=== PATIENT | female | born 1960 | race Caucasian/White ===

== ENCOUNTER 2017-11-16 13:35 | Emergency (ER) | payer MEDICAID ==
[~2017-11-16] VITALS: Ht 149.9 cm; Wt 95.3 kg
[2017-11-16 13:43] VITALS: BP_SYST 136
[2017-11-16] MEDS ORDERED: NACL 0.9% 1,000 ML IV ONE (14:29)
[2017-11-16 14:59] LABS: BASOPHILS # (AUTO) 0.2 K/uL (0.0-0.2); BASOPHILS % (AUTO) 1.7 % (0.0-2.0); EOSINOPHILS # (AUTO) 0.1 K/uL (0.0-0.4); EOSINOPHILS % (AUTO) 0.5 % (0.0-4.0); HEMATOCRIT 46.9 % (36-48); HEMOGLOBIN 15.2 g/dL (12.0-16.0); LYMPHOCYTES # (AUTO) 0.6 K/uL (1.0-5.5); LYMPHOCYTES % (AUTO) 4.3 % (20.5-51.5); MEAN CORPUSCULAR HEMOGLOBIN 28 pg (27-31); MEAN CORPUSCULAR HGB CONC 32 % (32-36); MEAN CORPUSCULAR VOLUME 85 fL (79.0-98.0); MONOCYTES # (AUTO) 0.2 K/uL (0.0-1.0); MONOCYTES % (AUTO) 1.3 % (1.7-9.3); NEUTROPHILS # (AUTO) 11.7 K/uL (1.8-7.7); NEUTROPHILS % (AUTO) 92.2 % (40.0-70.0); PLATELET COUNT (AUTO) 336 K/uL (130-430); RED CELL DISTRIBUTION WIDTH 13.3 % (9.0-15.0); WHITE BLOOD COUNT (AUTO) 12.8 K/uL (4.8-10.8)
[2017-11-16 15:04] LABS: CALCIUM 8.8 mg/dL (8.4-11.0); CREATININE 0.78 mg/dL (0.55-1.30); POTASSIUM 4.5 mmol/L (3.5-5.1)
[2017-11-16 15:08] LABS: ALBUMIN 3.7 g/dL (3.4-4.8); TOTAL BILIRUBIN 0.6 mg/dL (0.0-1.0)
[2017-11-16 16:51] LABS: BILIRUBIN,URINE NEGATIVE (NEGATIVE); BLOOD, URINE 1+ (NEGATIVE); CLARITY/URINE CLEAR (CLEAR); COLOR,URINE YELLOW (YELLOW); GLUCOSE,URINE NEGATIVE (NEGATIVE); KETONES,URINE NEGATIVE (NEGATIVE); LEUKOCYTE ESTERASE ,URINE NEGATIVE (NEGATIVE); NITRITE, URINE NEGATIVE (NEGATIVE); PROTEIN URINE NEGATIVE (NEGATIVE); UROBILINOGEN,URINE 0.2 (0.2-1.0)
[2017-11-16 16:56] LABS: BACTERIA,URINE FEW /HPF (None Seen); RBC,URINE 0-3 /HPF (0-3); WBC,URINE 0-3 /HPF (0-3)
[2017-11-16] MEDS ORDERED: ONDANSETRON HCL 4 MG/2 ML VIAL IVP ONE (17:00)
[2017-11-16] MEDS ORDERED: fentaNYL CITRATE/PF 100 MCG/2 ML AMP IVP ONE (17:00)
[2017-11-16 18:38] VITALS: BP_SYST 126
== END 2017-11-16 18:38 | disposition home or self-care (01) ==
LOC: SED 13:35
DX: K29.70 Gastritis, unspecified, without bleeding (principal); I10 Essential (primary) hypertension
CPT/HCPCS: 36415; 74176; 80053; 81000; 83690; 85025; 96361; 96374; 96375; 99285; J2405; J3010; J7030

== ENCOUNTER 2018-08-26 16:37 | Emergency (ER) | payer MEDICAID ==
[~2018-08-26] VITALS: Ht 149.9 cm; Wt 97.5 kg
[2018-08-26 17:00] VITALS: BP_SYST 141
--- NOTE | 2018-08-26 17:07 | NUR ---
Patient triaged and placed in waiting room. VSS and patient appears in no acute distress at this time. Accompanied by son, awaiting available bed, and MD notified of need for MSE.
--- NOTE | 2018-08-26 17:14 | NUR ---
Patient to ER hallway 2 to [facility] for evaluation. Side rails up. Report given to LYLA Call.
--- NOTE | 2018-08-26 17:15 | NUR ---
LOKI Diaz at bedside examining patient.
[2018-08-26] MEDS ORDERED: ALBUTEROL SULFATE 0.083% 2.5 MG/3 ML VIAL.NEB INH ONE ×3 (17:30→19:00)
[2018-08-26] MEDS ORDERED: methylPREDNISolone SOD SUCC/PF 62.5 MG/ML VIAL IM ONE (17:30)
--- NOTE | 2018-08-26 17:30 | NUR ---
Patient moved to bed 8. LYLA Call made aware.
[2018-08-26] MEDS: BUDESONIDE 0.5 MG/2 ML AMPUL.NEB INH ONE ×2 (17:38→18:02)
--- NOTE | 2018-08-26 17:40 | NUR ---
RT at bedside for breathing tx
[2018-08-26 17:43] LABS: HEMOGLOBIN 13.3 g/dL (12.0-16.0)
[2018-08-26] MEDS ORDERED: BUDESONIDE 0.5 MG/2 ML AMPUL.NEB ONE (17:45)
--- NOTE | 2018-08-26 17:48 | NUR ---
Pt c/o cough and SOB since last night. Denies fever, denies chest pain, denies n/v. Audible wheezing. Dropped off by son. Breathing tx done with some relief. VS WNL
[2018-08-26 17:49] LABS: HEMATOCRIT 40.1 % (36-48); MEAN CORPUSCULAR HEMOGLOBIN 29 pg (27-31); MEAN CORPUSCULAR HGB CONC 33 % (32-36); MEAN CORPUSCULAR VOLUME 88 fL (79.0-98.0); PLATELET COUNT (AUTO) 296 K/uL (130-430); RED BLOOD CELL COUNT(AUTO) 4.58 MIL/uL (4.2-6.2); RED CELL DISTRIBUTION WIDTH 14.2 % (9.0-15.0); WHITE BLOOD COUNT (AUTO) 11.4 K/uL (4.8-10.8)
[2018-08-26 17:54] LABS: CALCIUM 8.8 mg/dL (8.4-11.0); CREATININE 0.74 mg/dL (0.55-1.30); POTASSIUM 4.3 mmol/L (3.5-5.1)
[2018-08-26 17:59] LABS: ALBUMIN 3.4 g/dL (3.4-4.8); TOTAL BILIRUBIN 0.4 mg/dL (0.0-1.0)
[2018-08-26] MEDS ORDERED: IPRATROPIUM/ALBUTEROL SULFATE 3 ML AMPUL.NEB (DUONEB) INH ONE (18:00)
[2018-08-26 18:07] LABS: BAND % (MANUAL) 13 % (0-6); LYMPHOCYTES % (MANUAL) 13 % (20-46)
[2018-08-26 18:08] LABS: BASOPHILS % (MANUAL) 0 % (0-2); EOSINOPHILS % (MANUAL) 6 % (0-7); MONOCYTES % (MANUAL) 3 % (0-11)
--- NOTE | 2018-08-26 18:45 | NUR ---
Per pt, she uses a mask for her COPD three times a day.
--- NOTE | 2018-08-26 18:58 | NUR ---
RT at bedside for breathing tx.
--- NOTE | 2018-08-26 19:05 | NUR ---
Pt does not know her medications. Gets RX from [facility] [phone]. Unable to get a hold of anyone there. Family at bedside. Asked her to bring the RX bottles in if the pt is admitted.
--- NOTE | 2018-08-26 19:22 | NUR ---
Care endorsed to LYLA Kohler via [facility]
--- NOTE | 2018-08-26 20:11 | NUR ---
Pt has minor expiratory wheezing. Per patient, "I'm not as bad as when I first came in." Notified Dr. Covington
--- NOTE | 2018-08-26 20:13 | NUR ---
ER Dr. Covington at bedside examining patient.
--- NOTE | 2018-08-26 20:23 | NUR ---
RT at patient bedside administering breathing treatment. PT tolerated well.
[2018-08-26] MEDS ORDERED: LevALBUTEROL HCL 1.25 MG/0.5 ML *CONC.* VIAL.NEB (XOPENEX CONC.) INH ONE (20:30)
[2018-08-26 21:00] VITALS: BP_SYST 155
--- NOTE | 2018-08-26 21:00 | NUR ---
Patient given written and verbal discharge instructions and verbalizes understanding. ER MD discussed with patient the results and treatment provided. Patient in stable condition. ID arm band removed. Rx of Levaquin, Albuterol, Prednisone given. Patient educated on pain management and to follow up with PMD. Pain Scale 0. Opportunity for questions provided and answered. Medication side effect fact sheet provided.
== END 2018-08-26 21:00 | disposition home or self-care (01) ==
LOC: SED 16:37
DX: J44.1 Chronic obstructive pulmonary disease with (acute) exacerbation (principal); I10 Essential (primary) hypertension
CPT/HCPCS: 36415; 71045; 80053; 83880; 85007; 85027; 94640; 96372; 99285; J2930; J7612; J7613; J7620; J7626

== ENCOUNTER 2018-09-29 19:14 | Emergency (ER) | payer MEDICAID ==
[~2018-09-29] VITALS: Ht 149.9 cm; Wt 95.7 kg
[2018-09-29 19:42] VITALS: BP_SYST 154
--- NOTE | 2018-09-29 19:48 | NUR ---
Patient to ER bed 02 to gown for evaluation. Side rails up. Report given to LYLA Kohler
--- NOTE | 2018-09-29 19:50 | NUR ---
Pt complains of shortness of breath for the past 3 days. pt denies chest pain, N/V. Wheezing noted. O2 saturation at room air 96%. No other injuries/complaints per patient or noted.
--- NOTE | 2018-09-29 20:00 | NUR ---
ER Dr. Wells at bedside examining patient.
[2018-09-29] MEDS: methylPREDNISolone SOD SUCC/PF 62.5 MG/ML VIAL IVP ONE (20:05)
[2018-09-29] MEDS: IPRATROPIUM BROM 0.5 MG/2.5 ML VIAL.NEB (ATROVENT) IH ONE ×2 (20:14→20:52)
[2018-09-29] MEDS: ALBUTEROL SULFATE 0.083% 2.5 MG/3 ML VIAL.NEB IH ONE ×2 (20:14→20:51)
[2018-09-29] MEDS: PROMETHAZINE 6.25 MG/ CODEINE 10 MG/ 5 ML PO ONE (21:15)
[2018-09-29 22:03] VITALS: BP_SYST 154
--- NOTE | 2018-09-29 22:03 | NUR ---
Patient given written and verbal discharge instructions and verbalizes understanding. ER MD discussed with patient the results and treatment provided. Patient in stable condition. ID arm band removed. IV catheter removed intact and dressing applied, no active bleeding. Rx of Zithropak, Prednisone, Robitussin given. Patient educated on pain management and to follow up with PMD. Pain Scale 0. Opportunity for questions provided and answered. Medication side effect fact sheet provided.
== END 2018-09-29 22:03 | disposition home or self-care (01) ==
LOC: SED 19:14
DX: J44.1 Chronic obstructive pulmonary disease with (acute) exacerbation (principal); R05 Cough; I10 Essential (primary) hypertension
CPT/HCPCS: 71045; 94640; 96374; 99284; J2930; J7613

== ENCOUNTER 2018-10-23 18:52 | Emergency (ER) | payer MEDICAID ==
[~2018-10-23] VITALS: Ht 149.9 cm; Wt 97.1 kg
[2018-10-23 19:02] VITALS: BP_SYST 132
--- NOTE | 2018-10-23 19:03 | NUR ---
Placed in room 06 . Placed on global engineering manager, blood pressure machine and pulse oximeter. To gown for exam. Side rails up.
--- NOTE | 2018-10-23 19:10 | NUR ---
Pt came to the ED for SOB which started earlier today. Denies chest pain. Reports she has been wheezing all day. She notes she tried her machine and puffer at home with no relief. Denies n/v/d or fever. No ohter complaints/injuries noted. Will cont. to monitor.
[2018-10-23] MEDS ORDERED: methylPREDNISolone SOD SUCC/PF 62.5 MG/ML VIAL IM ONE (19:15)
[2018-10-23] MEDS ORDERED: IPRATROPIUM/ALBUTEROL SULFATE 3 ML AMPUL.NEB (DUONEB) INH ONE (19:15)
--- NOTE | 2018-10-23 19:15 | NUR ---
LOKI Mustafa at bedside examining patient.
--- NOTE | 2018-10-23 19:31 | NUR ---
RT at bedside
--- NOTE | 2018-10-23 20:43 | NUR ---
RT at bedside for second breathing treatment.
[2018-10-23] MEDS ORDERED: ALBUTEROL SULFATE 0.083% 2.5 MG/3 ML VIAL.NEB IH ONE (20:45)
[2018-10-23 21:50] VITALS: BP_SYST 132
--- NOTE | 2018-10-23 21:50 | NUR ---
Patient given written and verbal discharge instructions and verbalizes understanding. ER MD Dr. Guerrero discussed with patient the results and treatment provided. Patient in stable condition. ID arm band removed. Rx of predisone given. Patient educated on pain management and to follow up with PMD. Pain Scale 0/10. Opportunity for questions provided and answered. Medication side effect fact sheet provided.
== END 2018-10-23 21:50 | disposition home or self-care (01) ==
LOC: SED 18:52
DX: J44.1 Chronic obstructive pulmonary disease with (acute) exacerbation (principal); I10 Essential (primary) hypertension
CPT/HCPCS: 71045; 94640; 96372; 99284; J2930; J7613; J7620

== ENCOUNTER 2019-04-02 20:50 | Emergency (ER) | payer MEDICAID ==
[~2019-04-02] VITALS: Ht 149.9 cm; Wt 97.1 kg
[2019-04-02 20:55] VITALS: BP_SYST 155
--- NOTE | 2019-04-02 20:55 | NUR ---
Patient triaged and placed in waiting room. VSS and patient appears in no acute distress at this time. Accompanied by SELF, awaiting available bed, and MD notified of need for MSE.
--- NOTE | 2019-04-02 22:00 | NUR ---
call pt name in the wr.no answer.
--- NOTE | 2019-04-02 22:05 | NUR ---
call pt name in the wr.no answer.
--- NOTE | 2019-04-02 22:15 | NUR ---
call pt name in the wr.no answer.
== END 2019-04-02 22:15 | disposition left against medical advice (07) ==
LOC: SED 20:50
DX: R05 Cough (principal); R06.2 Wheezing; Z53.21 Procedure and treatment not carried out due to patient leaving prior to being seen by health care provider

== ENCOUNTER 2020-02-02 08:39 | Emergency (ER) | payer MEDICAID, SELFPAY ==
[~2020-02-02] VITALS: Ht 149.9 cm; Wt 99.8 kg
[~2020-02-02 08:39] MED LIST: ALBU8.5H8 INH; AMLO2.5T2 PO; AZIT500T3 PO; BECL10.62 INH; DICY10CA13 PO; FAMO20TA8 PO; METO-542 PO; MONT10TA27 PO; PRED20TA PO; SYN50 PO
[2020-02-02 08:40] VITALS: BP_SYST 165
--- NOTE | 2020-02-02 08:40 | NUR ---
BROUGHT INTO TRIAGE TENT, WILL ASSUME CARE
--- NOTE | 2020-02-02 08:50 | NUR ---
PT STATES COUGHING WITH WHEEZING FOR PAST FEW DAYS, STATES MANY PEOPLE IN HER HOME WERE TESTED FOR COVID, ALL FAMILY IS SICK. PT STATES SHE DOES HAVE COPD, AND IS WHEEZING.
--- NOTE | 2020-02-02 09:01 | NUR ---
DR ZAPIEN OUTSIDE TO EVALUATE PT IN TRIAGE TENT
[2020-02-02] MEDS ORDERED: PRED20TA PO (09:11)
[2020-02-02] MEDS ORDERED: AZIT250T PO (09:11)
--- NOTE | 2020-02-02 09:13 | NUR ---
Note [email or web address] in EDM - 02/02/20 at 0914 by [email or web address] Patient given written and verbal discharge instructions and verbalizes understanding. ER discussed with patient the results and treatment provided. Patient in stable condition. ID arm band removed. Rx of Harris given. Patient educated on pain management and to follow up with PMD. Pain Scale 2/10 tolerable for pt. Opportunity for questions provided and answered. Medication side effect fact sheet provided.
[2020-02-02 09:34] VITALS: BP_SYST 145
--- NOTE | 2020-02-02 09:34 | NUR ---
Patient given written and verbal discharge instructions and verbalizes understanding. ER MD discussed with patient the results and treatment provided. Patient in stable condition. ID arm band removed. Rx of PRENISONE, AZITHROMYCIN given. Patient educated on pain management and to follow up with PMD. Pain Scale 0/10. Opportunity for questions provided and answered. Medication side effect fact sheet provided.
== END 2020-02-02 09:34 | disposition home or self-care (01) ==
LOC: SED 08:39
DX: J44.9 Chronic obstructive pulmonary disease, unspecified (principal); J40 Bronchitis, not specified as acute or chronic; I10 Essential (primary) hypertension; E07.9 Disorder of thyroid, unspecified; Z79.899 Other long term (current) drug therapy; Z20.828 Contact with and (suspected) exposure to other viral communicable diseases
CPT/HCPCS: 99283; U0003; C9803

== ENCOUNTER 2020-08-13 13:51 | Emergency (ER) | payer MEDICAID, SELFPAY ==
[~2020-08-13] VITALS: Ht 157.5 cm; Wt 97.5 kg
[~2020-08-13 13:51] MED LIST changes: -MONT10TA27 PO; +MONT10TA33 PO; +ZIT250 PO
[2020-08-13 13:53] VITALS: BP_SYST 209
--- NOTE | 2020-08-13 13:55 | NUR ---
ER at bedside examining patient.
--- NOTE | 2020-08-13 14:02 | NUR ---
Patient to ER bed 2 to gown for evaluation. Side rails up. Report given to Brooke ARITA.
--- NOTE | 2020-08-13 14:10 | NUR ---
Pt. bib BLS from [facility] after falling, states water made her fall landing on left knee and also hitting head, c/o pain to left lower leg and a headache
--- NOTE | 2020-08-13 14:34 | NUR ---
RADIOLOGY AT BEDSIDE
--- NOTE | 2020-08-13 14:50 | NUR ---
Patient transported to radiology via bed, accompanied by staff.
[2020-08-13] MEDS ORDERED: IBUP-1969 PO (16:01)
[2020-08-13] MEDS ORDERED: HYDR-3917 PO (16:01)
--- NOTE | 2020-08-13 16:06 | NUR ---
leg splint placed on
[2020-08-13] MEDS ORDERED: KETOROLAC TROMETHAMINE 30 MG VIAL IM ONE (16:15)
[2020-08-13] MEDS ORDERED: HYDROcodone/ACETAMIN 5-325 MG TAB (NORCO/ VICODIN) PO ONE (16:15)
--- NOTE | 2020-08-13 16:30 | NUR ---
instructions given on crutch use, pt demonstared back
--- NOTE | 2020-08-13 16:36 | NUR ---
Patient given written and verbal discharge instructions and verbalizes understanding. Dr. Lacey discussed with patient the results and treatment provided. Patient in stable condition. ID arm band removed. IV catheter removed intact and dressing applied, no active bleeding. Rx of Sesser and Ibuprofen given. Patient educated on pain management and to follow up with PMD. Pain Scale 3. Opportunity for questions provided and answered. Medication side effect fact sheet provided.
[2020-08-13 16:38] VITALS: BP_SYST 136
== END 2020-08-13 16:36 | disposition home or self-care (01) ==
LOC: SED 13:51
DX: S83.92XA Sprain of unspecified site of left knee, initial encounter (principal); S00.83XA Contusion of other part of head, initial encounter; I10 Essential (primary) hypertension; J44.9 Chronic obstructive pulmonary disease, unspecified; Z79.899 Other long term (current) drug therapy; W20.8XXA Other cause of strike by thrown, projected or falling object, initial encounter; Y93.89 Activity, other specified; Y92.89 Other specified places as the place of occurrence of the external cause; Y99.8 Other external cause status
CPT/HCPCS: 29505; 70450; 73564; 76376; 96372; 99284; J1885

== ENCOUNTER 2022-04-08 19:39 | Emergency (ER) | payer MEDICAID ==
[~2022-04-08] VITALS: Ht 149.9 cm; Wt 88.9 kg
[~2022-04-08 19:39] MED LIST changes: +HYDR-3917 PO; +IBUP-1969 PO; +MONT-40 PO; -MONT10TA33 PO
[2022-04-08 20:06] VITALS: BP_SYST 174
--- NOTE | 2022-04-08 20:06 | NUR ---
Triaged and placed patient back to the waiting room. Shortness of breath noted at this time. Informed patient to notify ED staff for any changes in condition or worsening of symptoms while waiting to be seen by a provider. Patient verbalized understanding.
[2022-04-08] MEDS ORDERED: IPRATROPIUM/ALBUTEROL SULFATE 3 ML AMPUL.NEB (DUONEB) INH ONE (20:30)
[2022-04-08] MEDS ORDERED: GUAI5SYR PO (21:30)
[2022-04-08] MEDS ORDERED: PSEU120T71 PO (21:30)
[2022-04-08] MEDS ORDERED: ALBMDI INH (21:30)
[2022-04-08] MEDS ORDERED: PRED20TA PO (21:30)
[2022-04-08 22:08] VITALS: BP_SYST 141
--- NOTE | 2022-04-08 22:10 | NUR ---
Patient given written and verbal discharge instructions and verbalizes understanding. ER MD discussed with patient the results and treatment provided. Patient in stable condition. ID arm band removed. IV catheter removed intact and dressing applied, no active bleeding. Rx of ALBUTEROL, PREDNISONE, GUEFINISINE,PSEUDOEPHEDRINE given. Patient educated on pain management and to follow up with PMD. Pain Scale . Opportunity for questions provided and answered. Medication side effect fact sheet provided.
== END 2022-04-08 22:08 | disposition home or self-care (01) ==
LOC: SED 19:39
DX: J44.1 Chronic obstructive pulmonary disease with (acute) exacerbation (principal); B34.9 Viral infection, unspecified; R05.9 Cough, unspecified; R06.02 Shortness of breath; I10 Essential (primary) hypertension; Z79.899 Other long term (current) drug therapy; Z20.822 Contact with and (suspected) exposure to COVID-19
CPT/HCPCS: 36415; 94640; 99283